=== PATIENT | female | born 1940 | race Caucasian/White ===

== ENCOUNTER → 2016-08-27 08:02 | Outpatient (CLI) | payer MEDICARE ==
[2015-12-06 13:14] VITALS: BMI 23.0
[~2016-08-27 08:02] MED LIST: ASPIRIN325 MG PO; BENICAR40 MG PO; BYSTOLIC2.5 MG PO; FEXOFENADINE H180 MG PO; IPRAT-ALBUT 0.5-3 ML UPD; LIPITOR20 MG PO; LOPERAMIDE HCL2 MG PO; MOBIC7.5 MG PO; NEXIUM40 MG PO; PERFOROMIS20 MCG/21 INH; SINGULAIR10 MG PO; VENTOLIN HFA18 GM INH
== END | disposition home or self-care (01) ==
LOC: D.US 08:02
DX: R10.11 Right upper quadrant pain (principal)

== ENCOUNTER → 2016-09-22 15:49 | Outpatient (CLI) | payer MEDICARE ==
[2015-12-06 13:14] VITALS: BMI 23.0
== END | disposition home or self-care (01) ==
LOC: D.LABREF 15:49
DX: Z12.4 Encounter for screening for malignant neoplasm of cervix (principal)

== ENCOUNTER → 2016-10-07 08:56 | Outpatient (CLI) | payer MEDICARE ==
[2015-12-06 13:14] VITALS: BMI 23.0
== END | disposition home or self-care (01) ==
LOC: D.NM 08:56
DX: R10.11 Right upper quadrant pain (principal)

== ENCOUNTER 2016-10-21 13:42 | Outpatient (CLI) | payer MEDICARE ==
[2015-12-06 13:14] VITALS: BMI 23.0
== END 2016-10-21 14:24 ==
LOC: D.MAMMO 13:42
DX: Z12.31 Encounter for screening mammogram for malignant neoplasm of breast (principal)

== ENCOUNTER → 2016-10-29 06:55 | Day surgery (SDC) | payer MEDICARE ==
[2016-10-28 13:45] LABS: HEMATOCRIT 36.1 % (36.0-48.0); HEMOGLOBIN 12.3 g/dL (12-16); MCH 28.9 pg (26.0-34.0); MCHC 34.1 g/dL (31.0-37.0); MCV 84.7 fL (80.0-100.0); MEAN PLATELET VOLUME 8.5 fL (7.4-10.4); RBC 4.26 10x6/uL (4.00-5.40); RDW 14.2 % (11.5-14.5); WBC 6.9 10x3/uL (4.8-10.8)
[~2016-10-29] VITALS: Ht 157.5 cm; Wt 51.7 kg
[~2016-10-29 06:55] MED LIST changes: +BYSTOLIC5 MG PO; +CETIRIZINE HCL5 MG PO; +HYDROCODON-ACE1 EAC7 PO; +MYSOLINE 50 MG50 MG PO
[2016-10-29 07:23] VITALS: BP 125/55; Ht 157.5 cm; Wt 51.7 kg
--- NOTE | 2016-10-29 16:20 | OP ---
PATIENT NAME: HOWARD PARKS MEDICAL RECORD: [id number] :38 LOCATION:D.OPS ADMISSION DATE: SURGEON: DAV MILLS MD DATE OF OPERATION: 10/29/2016 SURGEON: Dav Mills MD PREOPERATIVE DIAGNOSES: 1. Cholelithiasis without obstruction. 2. Gallbladder polyp. 3. Biliary dyskinesia. 4. Chronic obstructive pulmonary disease. 5. Emphysema. 6. Congestive heart failure. POSTOPERATIVE DIAGNOSES: 1. Cholelithiasis without obstruction. 2. Gallbladder polyp. 3. Biliary dyskinesia. 4. Chronic obstructive pulmonary disease. 5. Emphysema. 6. Congestive heart failure. PROCEDURE PERFORMED: Laparoscopic cholecystectomy. ANESTHESIA: General. COMPLICATIONS: None. SPECIMENS: None. Case was clean contaminated. ESTIMATED BLOOD LOSS: 20 cc. OPERATIVE COURSE: After consent was obtained, the patient was taken to the operating room and placed in the supine position on the operating table. Next, general anesthesia was given via endotracheal intubation after a timeout was performed that confirmed the correct patient and procedure. The abdomen was prepped and draped in typical sterile fashion. Local anesthetic was injected just above the umbilicus. A stab incision was made with an 11-blade scalpel. Using a 5-mm bladeless optical trocar, the abdomen was entered under direct laparoscopic vision. Adequate pneumoperitoneum was achieved. The abdominal cavity was inspected. No evidence of bowel injury. No evidence of bleeding. The patient was placed in steep reverse Trendelenburg position. All remaining trocars were placed after the administration of local anesthetic, two 5-mm trocars in the right upper quadrant and 11-mm trocar in the subxiphoid position. The fundus of the gallbladder was grasped and retracted cephalad. The infundibulum was grasped and retracted laterally. The peritoneum was incised using electrocautery. Blunt dissection was performed with the critical view was obtained. The cystic duct lateral, cystic artery medial, liver in the posterior window. Three clips were placed in the proximal cystic duct, 1 clip distal, 2 clips were placed in the proximal cystic artery, 1 clip distal. The duct and artery were then transected with laparoscopic Metzenbaum scissors. The remaining portion of the gallbladder was dissected out of the liver bed using OPERATIVE REPORT [id number] HOWARD PARKS electrocautery. Once complete, it was grasped with the tenaculum and removed through the 11-mm trocar and sent for permanent pathology. Next, the operative field was copiously irrigated and suctioned. Careful attention was paid to hemostasis, which was obtained in the liver bed using electrocautery. The operative site again was inspected. There was [address] in duct, [address] in the artery. The abdominal cavity was copiously irrigated and suctioned. There is no evidence of bowel injury. No evidence of bleeding, no evidence of bile leak. At this time, all remaining instruments were removed. The abdomen was desufflated. Trocars removed. Skin was closed with 4-0 Monocryl, Mastisol and Steri-Strips. At the end of the case, all needle and instrument counts were correct. No complications occurred. The patient was extubated and transferred to the PACU in stable condition. TRANSINT:[id number] Voice Confirmation ID: [id number] DOCUMENT ID: [id number] DAV MILLS MD at 1620 CC: [id number] DICTATION DATE: 10/29/16 1026 SUPPLY CHAIN MANAGER: 10/29/16 1252 [facility] [address] [place] [address]
== END | disposition home or self-care (01) ==
LOC: D.OPS 06:55 → D.PAN 09:00 → D.OPS 09:00
PROVIDERS: Anesthesiology
DX: K80.20 Calculus of gallbladder without cholecystitis without obstruction (principal); J44.9 Chronic obstructive pulmonary disease, unspecified; I50.9 Heart failure, unspecified; Z01.812 Encounter for preprocedural laboratory examination

== ENCOUNTER 2017-01-24 19:29 | Emergency (ER) | payer MEDICARE ==
[2016-10-29 07:23] VITALS: BMI 20.9
== END 2017-01-24 21:17 | disposition home or self-care (01) ==
LOC: D.ER 19:29
DX: J44.1 Chronic obstructive pulmonary disease with (acute) exacerbation (principal); J20.9 Acute bronchitis, unspecified

== ENCOUNTER 2017-02-03 05:59 | Emergency (ER) | payer MEDICARE ==
[2016-10-29 07:23] VITALS: BMI 20.9
== END 2017-02-03 08:44 | disposition home or self-care (01) ==
LOC: D.ER 05:59
DX: S01.81XA Laceration without foreign body of other part of head, initial encounter (principal); W19.XXXA Unspecified fall, initial encounter; Y93.89 Activity, other specified; Y92.012 Bathroom of single-family (private) house as the place of occurrence of the external cause; J44.9 Chronic obstructive pulmonary disease, unspecified

== ENCOUNTER → 2017-02-03 09:25 | Outpatient (CLI) | payer MEDICARE ==
[2016-10-29 07:23] VITALS: BMI 20.9
== END | disposition home or self-care (01) ==
LOC: D.MRI 08:30
DX: M25.511 Pain in right shoulder (principal)

== ENCOUNTER 2020-01-10 18:00 | Outpatient (CLI) | payer MEDICARE ==
[2016-10-29 07:23] VITALS: BMI 20.9
== END 2020-01-10 23:59 | disposition home or self-care (01) ==
LOC: D.MAMMO 18:00
PROVIDERS: ATTEND Family Medicine
DX: Z12.31 Encounter for screening mammogram for malignant neoplasm of breast (principal)

== ENCOUNTER → 2020-07-20 10:30 | Outpatient (CLI) | payer MEDICARE ==
[2020-04-19 12:49] VITALS: BMI 24.8
[~2020-07-20 10:30] MED LIST changes: +DOXYCYCLINE HY100 M2 PO; +FLORAJEN3 CAPS460 MG PO; +MUCINEX600 MG PO; +OMNICEF300 MG PO; +PREDNISONE10 MG PO; +PROTONIX40 MG PO; +PULMICORT0.5 MG/21 UPD; +TESSALON PERLE100 MG PO
== END | disposition home or self-care (01) ==
LOC: D.LAB 10:29
PROVIDERS: ATTEND Internal Medicine Pulmonary Disease
DX: Z20.822 Contact with and (suspected) exposure to COVID-19 (principal)

== ENCOUNTER → 2020-07-26 08:47 | Outpatient (CLI) | payer MEDICARE ==
[2020-04-19 12:49] VITALS: BMI 24.8
== END | disposition home or self-care (01) ==
LOC: D.RT 08:47
PROVIDERS: ATTEND Internal Medicine Pulmonary Disease
DX: J44.9 Chronic obstructive pulmonary disease, unspecified (principal); Z11.52 Encounter for screening for COVID-19